=== PATIENT | female | born 1950 ===

== ENCOUNTER 2021-01-25 11:59 | Emergency (ER) | payer MEDICARE ==
--- NOTE | 2021-01-25 13:50 | Event Note ---
ED Screening Note Date of service: 01/25/21 Time: 13:50 ED Screening Note: 70-year-old female patient with history of hypertension, systolic heart failure, coronary artery disease, and documented medication noncompliance presents to the emergency department with complaints of bilateral pedal edema starting last week. Patient states she has been out of her medications for approximately 3 weeks. Denies chest pain or shortness of breath. Review of past medical records indicates she was hospitalized here in November 2020, at which time she was discharged home with Spironolactone and Lasix, as well as several other prescriptions. General: Awake, appropriately interactive, no acute distress. Neck: Supple. Full range of motion intact. Cardiovascular: Regular rate and rhythm. Normal peripheral perfusion. Bilateral nonpitting pedal edema. Pulmonary: Clear to auscultation bilaterally. No respiratory distress. Patient is speaking normally without use of accessory muscles. Skin: No apparent rashes or lesions. Neurological: No facial asymmetry. Speech is clear. Follows commands. Patient is alert and oriented. Musculoskeletal: Moves all four extremities spontaneously with normal range of motion. Psych: Cooperative. Appropriate mood and affect. I have greeted and performed a focused rapid initial assessment of this patient. A comprehensive ED assessment and evaluation of the patient, analysis of all test results, and completion of the medical decision-making process will be conducted by additional ED providers. This initial assessment/diagnostic orders/clinical plan/treatment(s) is/are subject to change based on patients health status, clinical progression and re-assessment. Further treatment and workup at subsequent clinical provider's discretion. Patient/guardian urged not to elope from the ED as their condition may be serious if not clinically assessed and managed.
[2021-01-25 14:20] LABS: Basophils % (Auto) 0.3 % (0.0-1.8); Eosinophils # (Auto) 0.1 K/mm3 (0.0-0.4); Eosinophils % (Auto) 1.3 % (0.0-4.3); Hematocrit 30.4 % (30.3-42.9); Hemoglobin 9.9 gm/dl (10.1-14.3); Lymphocytes # (Auto) 2.3 K/mm3 (1.2-5.4); Lymphocytes % (Auto) 21.9 % (13.4-35.0); Mean Corpuscular HGB Conc 33 % (30-34); Mean Corpuscular Volume 82 fl (79-97); Monocytes # (Auto) 0.9 K/mm3 (0.0-0.8); Monocytes % (Auto) 8.3 % (0.0-7.3); Platelet Count 269 K/mm3 (140-440); Red Blood Count 3.72 M/mm3 (3.65-5.03); Red Cell Distribution Width 15.6 % (13.2-15.2)
[2021-01-25 14:35] LABS: Albumin 2.9 g/dL (3.9-5)
[2021-01-25] MEDS ORDERED: POTASSIUM CHLORIDE ER 20 MEQ TAB PO ONE (19:49)
--- NOTE | 2021-01-25 22:16 | Emergency Department Report ---
ED General Adult HPI - General Chief complaint: Extremity Problem,Nontraumatic Stated complaint: SWOLLEN FEET PUI?: No Time Seen by Provider: 01/25/21 22:12 Source: patient, RN notes reviewed, old records reviewed Mode of arrival: Ambulatory Limitations: No Limitations - History of Present Illness Initial comments: The patient was evaluated in the emergency department for symptoms described in the history of present illness. He/she was evaluated in the context of the global COVID-19 pandemic, which necessitated consideration that the patient might be at risk for infection with the virus that causes COVID-19. Institutional protocols and algorithms that pertain to the evaluation of patients at risk for COVID-19 are in a state of rapid change based on information released by regulatory bodies including the CDC and federal and state organizations. These policies and algorithms were followed during the patient's care in the emergency department. Please note that these policies, procedures and recommendations changed on a rapid basis. Cardiology: Dr. Farfan, [facility] cardiology This is a pleasant 70-year-old female. Her past medical history includes 2 vessel ischemic cardiac disease, with an ejection fraction of approximately 35%, also has a history of obesity, diabetes, hypertension and high cholesterol. She was admitted to this hospital in November for CHF exacerbation, started on Brilinta and aspirin, and also started on guideline directed medical therapy for systolic left ventricular failure and coronary artery disease. Patient reports that after being discharged, she was given prescriptions, which unfortunately have run out. She has been out of her medications for around 3 weeks. The patient presents to the ER today with a complaint of painless lower extremity swelling. She has no headache, neck pain, chest pain, abdominal pain, and she denies new/different shortness of breath. She has chronic two-pillow orthopnea. She denies loss of taste and smell. She denies fever. She denies vomiting. She denies diaphoresis. She denies chest pain. She denies new/different shortness of breath. Her only complaint is swelling in her bilateral lower extremities. She denies diet lifestyle indiscretions. Her lower extremity swelling has been going on for 3 weeks. She came in today, "because today's today but I wanted to get it taken care of." -: Gradual, week(s) Location: left, right, lower extremity Consistency: constant Improves with: none Worsens with: none Associated Symptoms: denies other symptoms - Related Data Home Medications Medication Instructions Recorded Confirmed Last Taken Metformin HCl [metFORMIN] 1,000 mg PO BID 06/10/20 11/29/20 06/09/20 Previous Rx's Medication Instructions Recorded Last Taken Type AtorvaSTATin [Lipitor] 40 mg PO QHS #30 tablet 06/24/20 Unknown Rx Aspirin EC [Halfprin EC] 81 mg PO QDAY #30 tablet. 12/02/20 Unknown Rx AtorvaSTATin [Lipitor] 40 mg PO QHS #30 tablet 12/02/20 Unknown Rx Furosemide [Lasix TAB] 40 mg PO QDAY #30 tablet 12/02/20 Unknown Rx Melatonin [Melatonin 5MG TAB] 5 mg PO QHS PRN tablet 12/02/20 Unknown Rx NIFEdipine XL [Procardia Xl] 60 mg PO QDAY #30 tablet 12/02/20 Unknown Rx Spironolactone [Aldactone] 25 mg PO QDAY #30 tablet 12/02/20 Unknown Rx Ticagrelor [Brilinta] 90 mg PO BID #60 tablet 12/02/20 Unknown Rx Valsartan [Diovan] 160 mg PO BID #60 tablet 12/02/20 Unknown Rx hydrALAZINE [Apresoline TAB] 25 mg PO Q8HR 90 Days #90 tablet 12/02/20 Unknown Rx Allergies Allergy/AdvReac Type Severity Reaction Status Date / Time No Known Allergies Allergy Unverified 06/10/20 11:45 ED Review of Systems ROS: Stated complaint: SWOLLEN FEET Other details as noted in HPI Comment: All other systems reviewed and negative Musculoskeletal: other (Painless bilateral lower extremity swelling) ED Past Medical Hx - Past Medical History Hx Hypertension: Yes Hx Congestive Heart Failure: Yes Hx Diabetes: Yes Hx Asthma: No Hx COPD: No - Surgical History Hx Coronary Stent: Yes - Social History Smoking Status: Never Smoker Substance Use Type: None - Medications Home Medications: Home Medications Medication Instructions Recorded Confirmed Last Taken Type Metformin HCl [metFORMIN] 1,000 mg PO BID 06/10/20 11/29/20 06/09/20 History AtorvaSTATin [Lipitor] 40 mg PO QHS #30 tablet 06/24/20 11/29/20 Unknown Rx Aspirin EC [Halfprin EC] 81 mg PO QDAY #30 tablet. 12/02/20 Unknown Rx AtorvaSTATin [Lipitor] 40 mg PO QHS #30 tablet 12/02/20 Unknown Rx Furosemide [Lasix TAB] 40 mg PO QDAY #30 tablet 12/02/20 Unknown Rx Melatonin [Melatonin 5MG TAB] 5 mg PO QHS PRN tablet 12/02/20 Unknown Rx NIFEdipine XL [Procardia Xl] 60 mg PO QDAY #30 tablet 12/02/20 Unknown Rx Spironolactone [Aldactone] 25 mg PO QDAY #30 tablet 12/02/20 Unknown Rx Ticagrelor [Brilinta] 90 mg PO BID #60 tablet 12/02/20 Unknown Rx Valsartan [Diovan] 160 mg PO BID #60 tablet 12/02/20 Unknown Rx hydrALAZINE [Apresoline TAB] 25 mg PO Q8HR 90 Days #90 tablet 12/02/20 Unknown Rx ED Physical Exam - General Limitations: No Limitations General appearance: alert, in no apparent distress, obese - Head Head exam: Present: atraumatic, normocephalic - Eye Eye exam: Present: normal appearance, EOMI. Absent: nystagmus - ENT ENT exam: Present: normal exam, normal orophraynx, mucous membranes moist, normal external ear exam - Neck Neck exam: Present: normal inspection, full ROM. Absent: tenderness, meningismus - Respiratory Respiratory exam: Present: normal lung sounds bilaterally. Absent: respiratory distress, wheezes, rales, rhonchi, stridor, decreased breath sounds - Cardiovascular Cardiovascular Exam: Present: regular rate, normal rhythm, normal heart sounds. Absent: bradycardia, tachycardia, irregular rhythm, systolic murmur, diastolic murmur, rubs, gallop - GI/Abdominal GI/Abdominal exam: Present: soft. Absent: distended, tenderness, guarding, rebound, rigid, pulsatile mass - Extremities Exam Extremities exam: Present: normal inspection, full ROM, pedal edema (3+ edema in the bilateral lower extremities), other (2+ pulses noted in the bilateral upper and lower extremities. There is no palpable cord. negative Homans sign. Muscular compartments are soft. The pelvis is stable.). Absent: calf ten derness - Back Exam Back exam: Present: normal inspection, full ROM. Absent: tenderness, CVA tenderness (R), CVA tenderness (L), paraspinal tenderness, vertebral tenderness - Neurological Exam Neurological exam: Present: alert, oriented X3, normal gait, other (No facial droop. Tongue midline. Extraocular movements intact bilaterally. Facial sensation intact to light touch in V1, V2, V3 distribution bilaterally. 5 and a 5 strength in 4 extremities. Sensation intact to light touch in 4 extremities.). Absent: motor sensory deficit - Psychiatric Psychiatric exam: Present: normal affect, normal mood - Skin Skin exam: Present: warm, dry, intact, normal color. Absent: rash ED Course Vital Signs 01/25/21 01/25/21 01/25/21 12:25 22:30 22:58 Temperature 99.2 F Pulse Rate 86 Respiratory 17 Rate Blood Pressure 230/93 258/117 258/117 O2 Sat by Pulse 96 100 Oximetry O2 Sat by Pulse Oximetry [ Digit-Finger] 01/25/21 01/25/21 01/25/21 22:59 23:00 23:16 Temperature Pulse Rate Respiratory 18 Rate Blood Pressure 258/117 257/99 O2 Sat by Pulse 100 Oximetry O2 Sat by Pulse Oximetry [ Digit-Finger] 01/25/21 01/26/21 01/26/21 23:30 00:00 00:42 Temperature Pulse Rate 71 70 Respiratory 18 14 Rate Blood Pressure 220/68 257/99 O2 Sat by Pulse 100 100 Oximetry O2 Sat by Pulse 99 Oximetry [ Digit-Finger] - Reevaluation(s) Reevaluation #1: 01/25/21 22:49 Differential diagnosis, including but not limited to: Congestive heart failure, lower extremity edema, medication refill, hypertension, chronic renal insufficiency Assessment and plan: 70-year-old female, presenting with bilateral lower extremity swelling, chronic hypertension, without hypoxia, shortness of breath. Patient speaking in full sentences, saturating 99% on room air. Patient prefers to be discharged if possible. I will reinitiate her outpatient medications. She will be given Lasix and hydralazine in the emergency room. Patient states the symptoms have been present for 3 weeks. She has outpatient follow-up with her shift mgr later on this month. I did offer the patient admission, which she declines at this time. At this point time, if we can improve patient's blood pressure to acceptable level, through shared decision- making, we would consider it appropriate to discharge the patient, with refills on her prescriptions, and close outpatient follow-up with primary care and/or cardiology. Reassess after initiation of oral and IV medications. 01/25/21 22:51 Laboratory studies appear to be at baseline Reevaluation #2: 01/25/21 23:56 Patient reassessed. She is in no acute distress. Blood pressure 215/95. Continuing to saturate at 99% on room air. No respiratory distress. X-ray the chest reviewed and appreciated, including interpretation. This can be followed up as an outpatient, do not see indication for emergent CT scan of the chest at this time 01/26/21 00:42 Patient reassessed multiple times She is resting comfortably on her stretcher, and she is in no acute distress. Blood pressure 212/70. Patient has chronic hypertension. She is not otherwise in any acute distress. She indicates she is comfortable with discharge, and would like to follow-up with her outpatient primary care doctor and shift mgr. 01/26/21 00:47 - Pulse Oximetry Interpretation Digit-Finger Initial Pulse Oximetry Readin O2 Sat by Pulse Oximetry: 99 Actions Taken: none ED Medical Decision Making - Lab Data Result diagrams: 01/25/21 13:54 01/25/21 13:54 Vital Signs 01/25/21 12:25 Temperature 99.2 F Pulse Rate 86 Respiratory 17 Rate Blood Pressure 230/93 O2 Sat by Pulse 96 Oximetry Lab Results 01/25/21 01/25/21 Range/Units 13:54 13:54 WBC 10.6 (4.5-11.0) K/mm3 RBC 3.72 (3.65-5.03) M/mm3 Hgb 9.9 L (10.1-14.3) gm/dl Hct 30.4 (30.3-42.9) % MCV 82 (79-97) fl MCH 27 L (28-32) pg MCHC 33 (30-34) % RDW 15.6 H (13.2-15.2) % Plt Count 269 (140-440) K/mm3 Lymph % (Auto) 21.9 (13.4-35.0) % [place] % (Auto) 8.3 H (0.0-7.3) % Eos % (Auto) 1.3 (0.0-4.3) % Baso % (Auto) 0.3 (0.0-1.8) % Lymph # (Auto) 2.3 (1.2-5.4) K/mm3 [place] # (Auto) 0.9 H (0.0-0.8) K/mm3 Eos # (Auto) 0.1 (0.0-0.4) K/mm3 Baso # (Auto) 0.0 (0.0-0.1) K/mm3 Seg Neutrophils % 68.2 (40.0-70.0) % Seg Neutrophils # 7.2 (1.8-7.7) K/mm3 Sodium 142 (137-145) mmol/L Potassium 3.4 L (3.6-5.0) mmol/L Chloride 108.0 H (98-107) mmol/L Carbon Dioxide 29 (22-30) mmol/L Anion Gap 8 mmol/L BUN 29 H (7-17) mg/dL Creatinine 1.8 H (0.6-1.2) mg/dL Estimated GFR 28 ml/min BUN/Creatinine Ratio 16 % Glucose 208 H (65-100) mg/dL Calcium 8.0 L (8.4-10.2) mg/dL Magnesium 1.80 (1.7-2.3) mg/dL Total Bilirubin 0.20 (0.1-1.2) mg/dL AST 10 (5-40) units/L ALT 12 (7-56) units/L Alkaline Phosphatase 90 (35-129) units/L Total Protein 5.8 L (6.3-8.2) g/dL Albumin 2.9 L (3.9-5) g/dL Albumin/Globulin Ratio 1.0 % - EKG Data -: EKG Interpreted by Me EKG shows normal: sinus rhythm Rate: normal - EKG Data Interpretation: unchanged when compared t 01/25/21 22:51 EKG today's interpreted at 22: 48 Sinus rhythm, 75 bpm. Left axis deviation. Left anterior fascicular block. Left ventricular hypertrophy. QTC prolonged. The EKG is abnormal. The EKG is not a STEMI. Is unchanged from prior EKG from November 29, 2020. - Radiology Data Radiology results: pending, report reviewed, image reviewed interpreted by me: 1 view x-ray of the chest, interpreted by myself. Cardiomegaly. No pneumothorax. Pulmonary vascular congestion noted. CHEST 1 VIEW 01/25/2021 10:02 PM INDICATION / CLINICAL INFORMATION: dyuspnea. COMPARISON: 11/29/2020 FINDINGS: SUPPORT DEVICES: None. HEART / MEDIASTINUM: No significant abnormality. LUNGS / PLEURA: There is mild venous congestion. There is a perihilar density which may represent prominent vasculature but could represent a nodule or hilar adenopathy.. No pneumothorax. ADDITIONAL FINDINGS: No significant additional findings. IMPRESSION: 1. There is mild left hilar prominence. This may be vascular. Possibility of a nodule or adenopathy is considered. CT scanning of the chest with contrast is recommended to further evaluate. Signer Name: Carlito Borges MD Signed: 01/25/2021 10:19 PM Workstation Name: [id number] Critical Care Time: Yes Critical care time in (mins) excluding proc time.: 35 Critical care attestation.: If time is entered above; I have spent that time in minutes in the direct care of this critically ill patient, excluding procedure time. ED Disposition Clinical Impression: Lower leg edema, HTN (hypertension), Medication refill, Chronic renal insufficiency Disposition: - TO HOME OR SELFCARE Is pt being admited?: No Does the pt Need Aspirin: No Condition: Good Instructions: Hypertension (ED), Hypertension, Adult, Chronic Kidney Disease, Adult, [id number], Heart Failure, Diagnosis, [id number] Additional Instructions: Please continue current outpatient medications. Please follow-up with your primary care doctor or shift mgr within the next 3 to 5 days for repeat checkup/evaluation. These have your primary care doctor contact medical records department to follow-up on nonemergent incidental abnormal findings, on laboratory studies and x-ray of the chest. It is very important to take medications as directed and prescribed. Noncompliance with outpatient medications may result in worsening blood pressure, worsening congestive heart failure, and places patient at risk for stroke, heart attack, disability, paralysis, loss of quality of life in the future. Please make certain to consume a low-salt cardiac friendly diet, and please take the medications as directed. Please return to the emergency room right away with new pain, worsened pain, migration of pain, projectile vomiting, change in mental status, confusion, inability to tolerate liquid feeds, new, worsened or different symptoms not present on the initial emergency room evaluation. Referrals: LETHA MONCADA MD [Primary Care Provider] - 3-5 Days YG FARFAN MD [Staff Physician] - 3-5 Days
[2021-01-25] MEDS ORDERED: VALSARTAN 160MG TAB PO STA (22:30)
[2021-01-25] MEDS ORDERED: hydrALAZINE 20 MG/1 ML INJ IV ONE (22:31)
[2021-01-25] MEDS ORDERED: FUROSEMIDE 40 MG/4 ML INJ IV ONE (22:31)
[2021-01-25] MEDS ORDERED: NIFEdipine XL 60 MG TAB PO ONE (22:50)
[2021-01-25] MEDS ORDERED: TICAGRELOR 90 MG TAB PO ONE (22:50)
[2021-01-25] MEDS ORDERED: SPIRONOLACTONE 25 MG TAB PO ONE (23:00)
--- NOTE | 2021-01-25 23:24 | XRay Report ---
CHEST 1 VIEW 01/25/2021 10:02 PM INDICATION / CLINICAL INFORMATION: dyuspnea. COMPARISON: 11/29/2020 FINDINGS: SUPPORT DEVICES: None. HEART / MEDIASTINUM: No significant abnormality. LUNGS / PLEURA: There is mild venous congestion. There is a perihilar density which may represent pro minent vasculature but could represent a nodule or hilar adenopathy.. No pneumothorax. ADDITIONAL FINDINGS: No significant additional findings. IMPRESSION: 1. There is mild left hilar prominence. This may be vascular. Possibility of a nodule or adenopathy i s considered. CT scanning of the chest with contrast is recommended to further evaluate. Signer Name: Carlito Borges MD Signed: 01/25/2021 11:19 PM Workstation Name: [id number]
[2021-01-26 01:09] VITALS: BP 215/69
[2021-01-26] MEDS ORDERED: ASPIRIN EC 81 MG TAB PO SCH (10:00)
--- NOTE | 2021-01-27 11:23 | Electrocardiograph Report ---
[facility] Test Date: 2021-01-25 Test Time: 22:48:44 Pat Name: SARI MATUTE Department: Room: Gender: F Hose Maker: KEN : 1950 Requested By: ANKIT MELGAR Order Number: [id number] Reading MD: Scotty De La Cruz Measurements Intervals [place] Rate: 75 P: 38 FL: 160 QRS: -40 QRSD: 100 T: 81 QT: 435 QTc: 488 Interpretive Statements Sinus rhythm Probable left atrial enlargement Left anterior fascicular block LVH with secondary repolarization abnormality No previous ECG available for comparison Electronically Signed On 01-27-2021 11:23:00 EDT by Scotty De La Cruz
== END 2021-01-26 01:10 | disposition home or self-care (01) ==
LOC: ED 11:59
DX: R60.0 Localized edema (principal); N28.9 Disorder of kidney and ureter, unspecified; Z76.0 Encounter for issue of repeat prescription; I11.0 Hypertensive heart disease with heart failure; I50.9 Heart failure, unspecified; Z79.82 Long term (current) use of aspirin; Z79.899 Other long term (current) drug therapy
CPT/HCPCS: 36415; 71045; 80053; 83735; 85025; 93005; 96374; 96375; 99284; J0360; J1940

== ENCOUNTER 2021-06-05 10:26 | Emergency (ER) | payer MEDICARE ==
[2021-06-05 11:32] VITALS: BP 150/63
--- NOTE | 2021-06-05 12:50 | Emergency Department Report ---
- General Chief Complaint: Dyspnea/Respdistress Stated Complaint: COLD SYMPTOMS PUI?: Yes Time Seen by Provider: 06/05/21 11:31 Source: patient Mode of arrival: Ambulatory Limitations: No Limitations - History of Present Illness Initial Comments: Chief complaint: "I am just so cold." HPI: Is a 62-year-old female with history of hypertension, diabetes mellitus, systolic heart failure, hyperlipidemia, CAD status post coronary artery stent who presents with fever chills sore throat cough for 5 days. She has attempted mbuk-oav-lyrkdor medications. She denies tobacco abuse. 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 She has been around several persons. No known COVID-19 exposure. She is not vaccinated against COVID-19. She lives with her son who has been in his normal state of health. She denies loss of taste or smell. MD Complaint: fever, cough, sore throat, rhinorrhea, nasal congestion -: Gradual, days(s) (5 days) Severity: mild Consistency: constant Improves With: OTC cold medicine Worsens With: nothing Context: other (Several contacts at work, patient works with several people in close contact) Associated Symptoms: fever, chills, rhinorrhea, nasal congestion, sore throat, cough. denies: shortness of breath, abdominal pain, nausea, vomiting, diarrhea - Related Data Previous Rx's Medication Instructions Recorded Last Taken Type AtorvaSTATin [Lipitor] 40 mg PO QHS #30 tablet 12/02/20 Unknown Rx Aspirin EC [Halfprin EC] 81 mg PO QDAY #30 tablet. 01/26/21 Unknown Rx AtorvaSTATin [Lipitor] 40 mg PO QHS #30 tablet 01/26/21 Unknown Rx Furosemide [Lasix TAB] 40 mg PO QDAY #30 tablet 01/26/21 Unknown Rx Melatonin [Melatonin 5MG TAB] 5 mg PO QHS PRN #30 tablet 01/26/21 Unknown Rx Metformin HCl [metFORMIN] 1,000 mg PO BID #60 tab 01/26/21 Unknown Rx NIFEdipine XL [Procardia Xl] 60 mg PO QDAY #30 tablet 01/26/21 Unknown Rx Spironolactone [Aldactone] 25 mg PO QDAY #30 tablet 01/26/21 Unknown Rx Ticagrelor [Brilinta] 90 mg PO BID #60 tablet 01/26/21 Unknown Rx Valsartan [Diovan] 160 mg PO BID #60 tablet 01/26/21 Unknown Rx hydrALAZINE [Apresoline TAB] 25 mg PO Q8HR 90 Days #90 tablet 01/26/21 Unknown Rx Allergies Allergy/AdvReac Type Severity Reaction Status Date / Time No Known Allergies Allergy Unverified 06/10/20 11:45 ED Review of Systems ROS: Stated complaint: COLD SYMPTOMS Other details as noted in HPI Comment: All other systems reviewed and negative Constitutional: chills, fever Eyes: denies: eye pain, eye discharge, vision change ENT: throat pain, congestion. denies: ear pain Respiratory: denies: cough, shortness of breath, wheezing Cardiovascular: denies: chest pain, palpitations Endocrine: no symptoms reported Gastrointestinal: denies: abdominal pain, nausea, diarrhea Genitourinary: denies: urgency, dysuria, discharge Musculoskeletal: denies: back pain, joint swelling, arthralgia Skin: denies: rash, lesions Neurological: denies: headache, weakness, paresthesias Psychiatric: denies: anxiety, depression Hematological/Lymphatic: denies: easy bleeding, easy bruising ED Past Medical Hx - Past Medical History Previous Medical History?: Yes Hx Hypertension: Yes Hx Congestive Heart Failure: Yes Hx Diabetes: Yes Hx Asthma: No Hx COPD: No - Surgical History Past Surgical History?: Yes Hx Coronary Stent: Yes - Family History Family history: hypertension - Social History Smoking Status: Never Smoker Substance Use Type: None - Medications Home Medications: Home Medications Medication Instructions Recorded Confirmed Last Taken Type AtorvaSTATin [Lipitor] 40 mg PO QHS #30 tablet 12/02/20 Unknown Rx Aspirin EC [Halfprin EC] 81 mg PO QDAY #30 tablet 01/26/21 Unknown Rx AtorvaSTATin [Lipitor] 40 mg PO QHS #30 tablet 01/26/21 Unknown Rx Furosemide [Lasix TAB] 40 mg PO QDAY #30 tablet 01/26/21 Unknown Rx Melatonin [Melatonin 5MG TAB] 5 mg PO QHS PRN #30 tablet 01/26/21 Unknown Rx Metformin HCl [metFORMIN] 1,000 mg PO BID #60 tab 01/26/21 Unknown Rx NIFEdipine XL [Procardia Xl] 60 mg PO QDAY #30 tablet 01/26/21 Unknown Rx Spironolactone [Aldactone] 25 mg PO QDAY #30 tablet 01/26/21 Unknown Rx Ticagrelor [Brilinta] 90 mg PO BID #60 tablet 01/26/21 Unknown Rx Valsartan [Diovan] 160 mg PO BID #60 tablet 01/26/21 Unknown Rx hydrALAZINE [Apresoline TAB] 25 mg PO Q8HR 90 Days #90 tablet 01/26/21 Unknown Rx ED Physical Exam - General Limitations: No Limitations General appearance: alert, in no apparent distress, other (Patient appears well, nontoxic appearing, ambulates without difficulty) - Head Head exam: Present: atraumatic, normocephalic - Eye Eye exam: Present: normal appearance - ENT ENT exam: Present: mucous membranes moist - Neck Neck exam: Present: normal inspection, full ROM - Respiratory Respiratory exam: Present: normal lung sounds bilaterally. Absent: respiratory distress, wheezes, rales, rhonchi - Cardiovascular Cardiovascular Exam: Present: regular rate, normal rhythm, normal heart sounds. Absent: systolic murmur, diastolic murmur, rubs, gallop - GI/Abdominal GI/Abdominal exam: Present: soft, normal bowel sounds. Absent: distended, tenderness, guarding, rebound - Extremities Exam Extremities exam: Present: normal inspection - Neurological Exam Neurological exam: Present: alert, oriented X3 - Psychiatric Psychiatric exam: Present: normal affect, normal mood - Skin Skin exam: Present: warm, dry, intact, normal color. Absent: rash ED Course Vital Signs 06/05/21 11:30 Temperature 99.5 F Pulse Rate 91 H Respiratory 18 Rate Blood Pressure 150/63 O2 Sat by Pulse 100 Oximetry ED Medical Decision Making - Medical Decision Making Viral syndrome: Mild symptoms: Stable vital signs, oxygen saturation 100. Patient appears well. Recommended COVID-19 testing. I provided verbal supportive care instructions. Critical care attestation.: If time is entered above; I have spent that time in minutes in the direct care of this critically ill patient, excluding procedure time. ED Disposition Clinical Impression: Viral syndrome, Upper respiratory infection Disposition: HOME / SELF CARE / HOMELESS Is pt being admited?: No Does the pt Need Aspirin: No Condition: Stable Instructions: Upper Respiratory Infection, Adult, [id number], Viral Illness, Adult Referrals: DUSTY BOWDEN MD [Staff Physician] - 3-5 Days Forms: Work/School Release Form(ED)
== END 2021-06-06 03:00 | disposition home or self-care (01) ==
LOC: ED 10:26
DX: B34.9 Viral infection, unspecified (principal); J06.9 Acute upper respiratory infection, unspecified; I11.0 Hypertensive heart disease with heart failure; E11.8 Type 2 diabetes mellitus with unspecified complications; Z98.890 Other specified postprocedural states
CPT/HCPCS: 99281